=== PATIENT | male | born 1985 | race Caucasian/White ===

== ENCOUNTER 2018-09-17 16:05 | Emergency (ER) | payer SELFPAY ==
[~2018-09-17] VITALS: Ht 165.1 cm; Wt 77.1 kg
[2018-09-17 16:08] VITALS: Ht 165.1 cm; Wt 77.1 kg
[2018-09-17 18:32] VITALS: BP 117/77
== END 2018-09-17 18:32 | disposition home or self-care (01) ==
LOC: ED 16:05
DX: S92.351A Displaced fracture of fifth metatarsal bone, right foot, initial encounter for closed fracture (principal); X50.1XXA Overexertion from prolonged static or awkward postures, initial encounter; Y93.64 Activity, baseball; Y92.320 Baseball field as the place of occurrence of the external cause; Y99.8 Other external cause status
CPT/HCPCS: Q0092